=== PATIENT | male | born 1975 | race African-American/Black ===

== ENCOUNTER 2017-06-10 10:10 | Emergency (ER) | payer OTHER ==
[~2017-06-10] VITALS: Ht 185.4 cm; Wt 124.7 kg
[~2017-06-10 10:10] MED LIST: IBUPROFEN 800800 M1 PO; NORCO 10-325 T1 EACH PO; NORCO 5-325 TA1 EACH PO; TAMSULOSIN HCL0.4 MG PO; ULTRAM 50MG TAB50 MG PO; ZOFRAN ODT4 MG PO; ZYRTEC10 M2
[2017-06-10] MEDS ORDERED: NORCO 5-325 TA1 EACH PO (10:52)
[2017-06-10 10:55] VITALS: BP 171/111
== END 2017-06-10 10:56 | disposition home or self-care (01) ==
LOC: ER 10:10
DX: S50.01XA Contusion of right elbow, initial encounter (principal); V49.09XA Driver injured in collision with other motor vehicles in nontraffic accident, initial encounter; Y93.89 Activity, other specified; Y92.89 Other specified places as the place of occurrence of the external cause; Y99.8 Other external cause status

== ENCOUNTER 2018-01-12 19:05 | Emergency (ER) | payer OTHER ==
[~2018-01-12] VITALS: Ht 185.4 cm; Wt 127.0 kg
[2018-01-12] MEDS ORDERED: BACTRIM DS TAB1 EACH PO (20:33)
[2018-01-12 21:58] VITALS: BP 180/88
== END 2018-01-12 22:02 | disposition home or self-care (01) ==
LOC: ER 19:05
DX: L02.811 Cutaneous abscess of head [any part, except face] (principal); Z88.1 Allergy status to other antibiotic agents; Z88.0 Allergy status to penicillin